=== PATIENT | female | born 1975 | race Caucasian/White ===

== ENCOUNTER 2024-10-23 13:04 | Outpatient (AMB) | payer OTHER, SELFPAY ==
--- NOTE | 2024-10-23 13:11 | A.OFFVIS_ITS ---
Vital Signs 10/23/24 13:13 Height 5 ft 9 in Weight 242 lb 8.136 oz BMI 35.8 BP 116/80 Blood Pressure Location Lt brachial Position Sitting Pulse 75 Intake Visit Reasons: follow up Intake Note: José Miguel presents in the office as a follow up. CC: States that he is here as a follow up for a pain in the stomach. No irregular bowel movements. He states that the pains are all over the umbilical and epigastric region. Product Technology Scientist Required: No Allergies No Known Allergies Allergy (Verified 10/23/24 13:13) HPI HPI follow up: Details: HPI 49 yr old m here for f/u He has noted weight going up he has pain, upper abdomen, like a knife going on for 5-8 mins then goes not related to food he has variable heart burn he denies costipation or diarrhea no rectla bleeding he used omeprazole 40 mg and it helps ROS: Constitutional : No Weight loss, No Fever, No Chills ENT/Mouth : No sore throat, No Rhinorrhea Eyes: No Swelling, No Redness Cardiovascular : No Chest Pain, No SOB, No Edema Respiratory : No Cough, No Sputum, No Wheezing Gastrointestinal : see HPI Genitourinary : occ Dysuria, No Urinary Frequency, No Hematuria, No Urgency Musculoskeletal : - joint pain, No Myalgias, No Joint Swelling Skin : No Skin Lesions, No rash Neuro : No Weakness, No Numbness, No Dizziness, No Headache Psych : No Anxiety/Panic, No Depression Heme/Lymph: No Bruising, No Lymphadenopathy Endocrine : No Polyuria, No Polydipsia All other systems reviewed and are negative. Medical History none Surgical History endoscopies Family History depression in brother mother has stomach issues, Social History non smoker, no alcohol, no drugs EXAM: GENERAL: The patient is well developed and nontoxic. VITAL SIGNS:see workflow HEENT: Nonicteric sclerae, PERRLA, EOMI. Oropharynx clear. Moist mucous membranes. Conjunctivae appear well perfused. No thyroid mass. CHEST: Chest wall is nontender. HEART: Regular rate and rhythm without murmurs. LUNGS: Clear to auscultation bilaterally. ABDOMEN: Soft, positive bowel sounds, nontender, no organomegaly.no flank tenderness SKIN: No rash, no excessive bruising, petechiae, or purpura. NEUROLOGIC: Cranial nerves II-XII intact without motor/sensory deficit. Psych: normal affect A/P: 1/ Upper abdominal pain- ?dyspepsia, DDX: biliary PLAN: /1 labs, urine, US abdomen 2/ check h pylori [facility] Surgical History (Updated 10/23/24 @ 13:15 by RBAD Corona) History of esophagogastroduodenoscopy (EGD) Physical Exam Vital Signs: Last Vital Signs Pulse 75 10/23/24 13:13 BP 116/80 10/23/24 13:13 BMI result Body Mass Index 35.8 Assessment & Plan Assessment & Plan (1) Upper abdominal pain: Code(s): R10.10 - Upper abdominal pain, unspecified Category: Medical Plan: as above Coding Level of Care Code New Pt Level 4 (04135) Diagnoses Upper abdominal pain R10.10
[2024-10-23 13:13] VITALS: BP 116/80; PULSE 75; BMI 35.8
--- OUTSIDE RECORDS SUMMARY | 2024-10-23 15:17 | XMS_ITS | Clinical Summary ---
Author Organization [employer] [facility] Address [address] [place] [address] Care Team Providers Care Director Of Physical Therapy Name Role Phone Unavailable Primary Care Provider Unavailabl e Encounters Date Type Department Care Team Description 09/05/2024 Population Health Risk Score [facility] Care [facility] (C3) Department [address] [facility] [address] [place] [id number] Provider, Population Health Generic from Last 3 Months Social History Tobacco Use Types Packs/Day Years Used Date Smoking Tobacco: Never Assessed Sex and Gender Information Value Date Recorded Sex Assigned at Not on file Legal Sex Male 9:17 PM EDT Gender Identity Not on file Sexual Orientation Not on file Plan of Treatment Health Maintenance Due Date Last Done Comments CT Colonography 1977 Colonoscopy 1977 Depression Screening 1977 FIT DNA/Cologuard 1977 FOBT 1977 Lipid Panel 1977 SDOH Screening 1977 Sigmoidoscopy 1977 Disability Screening 1977 Alcohol/Substance Use Screening 1989 Tobacco Screening 1989 Family Planning (PISQ) 1992 Hepatitis C Screening 10/12/1995 Hepatitis A Vaccines (1 of 2 - Risk 2-dose series) 1996 DTaP/Tdap/Td Vaccines (3 - T d or Tdap) 06/03/2023 06/02/2013, 05/01/2013 COVID-19 Vaccine (3 - 2024-2 6 season) 2024 05/18/2020, 04/20/2020 Influenza Vaccine (#1) 2024 , 12/13/2014, 12/28/2013 Colorectal Cancer Screening 08/06/2025 FIT 08/06/2025 08/06/2024 Zoster Vaccines (1 of 2) 10/12/2027 RSV Patients and Patients Aged 60 years or older (1 - 1-dose 75+ series) 2052 Hepatitis B Vaccines Completed 12/28/2013, 08/17/2013, 06/02/2013 HIV Screening Completed 10/28/2020, 10/28/2020 HIB Vaccines Aged Out No longer eligi ble based on patient's age to complete this topic HPV Vaccines Aged Out No longer eligi ble based on patient's age to complete this topic IPV Vaccines Aged Out No longer eligi ble based on patient's age to complete this topic Meningococcal B Vaccine Aged Out No l onger eligible based on patient's age to complete this topic Meningococcal Vaccine Aged Out No matilde silas eligible based on patient's age to complete this topic Pneumococcal Vaccine: Pediatrics (0 to 5 Years) and At-Risk Patients (6 to 49) Years Aged Out No longer eligible b ased on patient's age to complete this topic RSV under 20 months Aged Out No longe r eligible based on patient's age to complete this topic Rotavirus Vaccines Aged Out No longer eligible based on patient's age to complete this topic
== END 2024-10-23 14:20 | disposition home or self-care (01) ==
PROVIDERS: PCP Nurse Practitioner Family; Visit Provider Internal Medicine Gastroenterology
DX: R10.10 Upper abdominal pain, unspecified (principal)
CPT/HCPCS: 99204

== ENCOUNTER 2024-10-23 13:04 | Outpatient (REF) | payer MEDICAID, SELFPAY ==
[2024-10-23 14:32] LABS: MANUAL DIFF FLAG NO
[2024-10-23 15:28] LABS: Hematocrit 45.2 % (37.0-47.0); Hemoglobin 14.7 g/dl (12.0-16.0); Imm Gran Abs Auto 0.01 X10*3/uL (0.00-0.03); Imm Gran Pct Auto 0.2 % (0.0-0.4); Lymphocytes Absolute Auto 1.7 X10*3/uL (1.2-4.9); Mean Corpuscular HGB Conc 32.5 g/dl (31.0-35.0); Mean Corpuscular Hemoglobin 26.7 pg (27.0-33.0); Mean Corpuscular Volume 82.0 fL (80.0-98.0); NRBC Abs Auto 0.000 X10*3/uL (0.0-0.012); NRBC Pct Auto 0.0 /100WBC (0.0-0.2); Platelet Count 213 X10*3/uL (160-400); Red Blood Count 5.51 X10*6/uL (4.20-5.50); White Blood Count 6.2 X10*3/uL (4.8-10.8)
[2024-10-23 15:54] LABS: Appearance Urine Clear; Glucose Urine UA Negative (Negative); PH 5.0 (5.0-9.0); Specific Gravity - Urine 1.025 (1.005-1.025); UMIC TRIGGER UACC YES
[2024-10-23 16:10] LABS: Alanine Aminotransferase 31 U/L (0-31); Albumin Level 5.0 g/dL (3.5-5.0); Alkaline Phosphatase 74 U/L (39-117); Anion Gap 12 (12-20); Aspartate Amino Transferase 27 U/L (5-31); Blood Urea Nitrogen 14 mg/dL (9-16); Calcium 9.3 mg/dL (8.4-10.2); Carbon Dioxide 24 mmol/L (22-29); Chloride 109 mmol/L (96-108); Estimated Glomerular Filt Rate > 60; Potassium 4.0 mmol/L (3.3-5.1); Sodium 141 mmol/L (135-145); Total Protein 7.9 g/dL (6.5-8.0)
--- OUTSIDE RECORDS SUMMARY | 2024-10-23 16:47 | XMS_ITS | Clinical Summary ---
Author Organization [facility] Address [address] [place] [address] Care Team Providers Care Printed Circuit Boards Stripper Etcher Name Role Phone Jordi Parrish MD Primary Care Provider [phone] Source Comments PLEASE NOTE, if this patient is a minor, it may be UNLAWFUL to discuss sensitive information that is contained in these records (such as FAMILY PLANNING, MENTAL HEALTH or SUBSTANCE ABUSE) with the minor patient's parent or other person without the patient's specific authorization.[facility] Allergies No known active allergies Medications dicyclomine (BENTYL) 10 mg capsule Take 1 Capsule by mouth 2 (two) times daily as needed for other reason (abdominal pain/ cramping). 60 Capsule 1 07/26/2024 Active Active Problems Problem Noted Date Diagnosed Date Sciatica of right side 07/26/2024 Class 3 severe obesity due t o excess calories with serious comorbidity and body mass index (BMI) of 40.0 to 44.9 in adult ([facility]) 10/31/2014 Liver hemangioma 12/28/2013 Overview (03/12/2023): Seen on MRI 2013 NAFLD (nonalcoholic fatty liver disease) Overview (03/12/2023): Seen on MRI 2013 Resolved Problems Problem Noted Date Diagnosed Date Resolved Date Overweight 10/25/2020 03/12/2023 Right nephrolithiasis 04/16/20142020 Overview (11/12/2016): - US at [facility] in 2016 negative - CT scan 2 mm right ureter stone 04/14/14 at [facility]. Encounters Date Type Department Care Team Description 08/06/2024 Results Follow-Up [address] [id number] Jordi Parrish MD 07/26/2024 3:00 PM EDT Office Visit [address] [phone] Jordi Parrish MD from Last 3 Months Immunizations Immunization Administration Dates Next Due Flu, Preservative Free 11/29/2019 Hep B, Adult/Adol (DRAYVHI-Y-ORRVK/RECOMBIVAX-ADULT) 12/28/2013,08/17/2013,06/02/2013 INFLUENZA, SEASONAL, INJECTABLE 12/13/2014,12/28 MMR (MMR II/Priorix) 06/02/2013,05/01/2013 Moderna COVID-19 Vaccine, re d cap blue label, 12+ Primary Series 05/18/2020,04/20/2020 PPD 08/22/2013 TDAP 06/02/2013,05/01/2013 Social History Tobacco Use Types Packs/Day Years Used Date Smoking Tobacco: Never Smokeless Tobacco: Never Tobacco Cessation:Counseling Given: Not Answered Alcohol Use Standard Drinks/Week Comments No 0 (1 standard drink = 0.6 oz pur e alcohol) Social Connections Answer Date Recorded Connectedness 0 11/03/2023 Financial Resource Strain Answer Date R ecorded Financial Resource Strain 0 2018 Stress Answer Date Recorded Stress 0 10/05/2018 Physical Activity Answer Date Recorded Physical Activity 0 10/05/2018 Food Insecurity Answer Date Recorded Food 0 11/11/2023 Transportation Needs Answer Date Record ed Transportation 0 10/05/2018 Housing Stability Answer Date Recorded Housing 0 10/05/2018 Safety and Environment Answer Date Christiano rded Safety 0 10/05/2018 Utilities Answer Date Recorded Utilities 0 10/05/2018 Employment Answer Date Recorded Stress 0 11/03/2023 Sex and Gender Information Value Date Recorded Sex Assigned at Male 04/16/2017 1:00 PM PST Legal Sex Male 7:14 AM PST Gender Identity Male 04/16/2017 1:00 PM PST Sexual Orientation Straight 04/16/2017 1: 00 PM PST Last Filed Vital Signs Vital Sign Reading Time Taken Comments Blood Pressure 112/78 07/26/2024 2:53 PM EDT Pulse 77 07/26/2024 2:53 PM EDT Temperature 36.6 C (97.8 F) 07/26/2024 2:53 PM EDT Respiratory Rate 16 07/26/2024 2:53 PM EDT Oxygen Saturation 96% 07/26/2024 2:53 PM EDT Inhaled Oxygen Concentration - - Weight 109.8 kg (242 lb) 07/26/2024 2:53 PM EDT Height 159 cm (5' 2.6 ) 07/26/2024 2:53 PM EDT Body Mass Index 43.42 07/26/2024 2:53 PM EDT Plan of Treatment Health Maintenance Due Date Last Done Comments CT Colonography 2022 Colonoscopy 2022 Fecal DNA 2022 Flexible Sigmoidoscopy 2022 Imm-DTaP/Tdap/Td (3 - Td or Tdap) 06/03/2023 014, 05/01/2013 [id number] ( season) 2024 12/26/2020, 05/18/2020, 04/20/2020 Annual Wellness (Adult): Indicated (All Coverage) 07/26/2025 07/26/2024, 03/12/2023, 10/25/2020, Additional history exists Anxiety Screening 07/26/2025 07/26/2024 Hypertension Screening (#1) 07/26/2025 Tobacco Screening 07/26/2025 07/26/2024 Colorectal Cancer Screening 08/06/2025 FIT/gFOBT 08/06/2025 08/06/2024, 03/14/2023 Diabetes Screening 08/03/2027 08/02/2024, 0 08/02/2024, 03/12/2023, Additional history exists Lipid Screening 08/03/2027 08/02/2024, 02/16, 10/28/2020, Additional history exists Imm-Hepatitis B Completed 12/28/2013, 07/0 04/2013, 06/02/2013 Imm-Influenza Discontinued 11/29/2019, 11/16, 12/13/2014, Additional history exists HIV Screening Completed 10/28/2020, 05/01/2013 Hepatitis C Screening Completed 10/30/2020, 021 Alcohol and Drug Screen Completed 07/27/19 25, 03/12/2023, 10/25/2020, Additional history exists Depression Annual Screen Completed 025, 06/18/2017, 12/13/2014 Procedures Procedure Name Priority Date/Time Associated Diagnosis Comments FECAL GLOBIN BY IMMUNOCHEMISTRY (FIT) Routine 08/06/2024 8:00 PM EDT Colon cancer screening COMPREHENSIVE METABOLIC PANEL Routine 08/02/2024 1:23 PM EDT Routine general medical examination at a health care facility LIPIDS W RFLX TO DIRECT LDL Routine 08/02/2024 1:23 PM EDT Routine general medical examination at a health care facility HGA1C W/EAG Routine 08/02/2024 1:23 PM EDT Routine general medical examination at a health care facility ACUTE HEPATITIS PANEL W/RFLX Routine 10/30/2020 11:31 AM EDT Hyperbilirubinemia HIV 1/2 AG & AB W/RFLX (4TH GEN) Routine 10/28/2020 12:49 PM EDT Routine general medical examination at a health care facility from Last 3 Months or Most Recently Relevant to Health Maintenance Results * FECAL GLOBIN BY IMMUNOCHEMISTRY (FIT) Stool Stool Routine (08/06/2024 8:00 PM EDT) FECAL GLOBIN BY IMMUNOCHEMISTRY See Note [facility] Comment: FECAL GLOBIN BY IMMUNOCHEMISTRY Micro Number: [id number] Test Status: Final Specimen Source: Insure () fobt test card Specimen Quality: Adequate Fecal Globin: Not Detected Reference Range: Not Detected NOTE: Approved collection includes sample of toilet water adjacent to stool. Other methods of collection such as stool transferred from diaper, bedpan, or commode to toilet water may lead to inaccurate results. Stool Stool specimen / Unknown 08/06/2024 8:00 PM EDT 08/08/2024 10:51 PM EDT Narrative [facility] - 08/09/2024 8:39 AM EDT SPLIT 08/02/2024 FROM [id number] us Jordi Parrish MD LAB BODY FLUIDS AND STOOLS A MBULATORY Final Result Performing Organization Address [facility] de Phone Number [facility] [address] [place] [address], [facility] [address] [phone] * HGA1C W/EAG Routine (08/02/2024 1:23 PM EDT) HEMOGLOBIN A1C 5.1 <5.7 % [facility] [facility] Comment: For the purpose of screening for the presence of diabetes: <5.7% Consistent with the absence of diabetes 5.7-6.4% Consistent with increased risk for diabetes (prediabetes) > or =6.5% Consistent with diabetes This assay result is consistent with a decreased risk of diabetes. Currently, no consensus exists regarding use of hemoglobin A1c for diagnosis of diabetes in children. According to [place] Diabetes Association (ADA) guidelines, hemoglobin A1c <7.0% represents optimal control in non- diabetic patients. Different metrics may apply to specific patient populations. Standards of Medical Care in Diabetes(ADA). EAG (MG/DL) 100 mg/dL [facility] EAG (MMOL/L) 5.5 mmol/L [facility] Blood Blood / Unknown 08/02/2024 1 :23 PM EDT 08/02/2024 1:28 PM EDT Narrative [facility] - 08/03/2024 9:06 AM EDT COLLECTION KIT GIVEN TO PATIENT. PATIENT ADVISED TO RETURN. us Jordi Parrish MD LAB - BLOOD DRAW Edited Resu lt - Final Performing Organization Address [facility]/ZIP Co de Phone Number [facility] [address] [address], [facility] [address] [address] * LIPIDS W RFLX TO DIRECT LDL Routine (08/02/2024 1:23 PM EDT) CHOLESTEROL, TOTAL 143 <200 mg/dL [facility] HDL CHOLESTEROL 46 > OR = 40 mg/dL [facility] TRIGLYCERIDES 69 <150 mg/dL [facility] LDL-CHOLESTEROL 82 99 mg/dL (calc) [facility] Comment: Reference range: <100 Desirable range <100 mg/dL for primary prevention; <70 mg/dL for patients with CHD or diabetic patients with > or = 2 CHD risk factors. LDL-C is now calculated using the Salazar calculation, which is a validated novel method providing better accuracy than the Friedewald equation in the estimation of LDL-C. Jose Carlos SS et al. SANGEETHA. 2013;310(19): 9251-1034 (http://education.Pop.it/faq/RJA435) CHOL/HDLC RATIO 3.1 <5.0 (calc) [facility] NON-HDL CHOLESTEROL 97 <130 mg/dL (calc) [facility] Comment: For patients with diabetes plus 1 major ASCVD risk factor, treating to a non-HDL-C goal of <100 mg/dL (LDL-C of <70 mg/dL) is considered a therapeutic option. Blood Blood / Unknown 08/02/2024 1 :23 PM EDT 08/02/2024 1:28 PM EDT Narrative [facility] - 08/03/2024 9:06 AM EDT COLLECTION KIT GIVEN TO PATIENT. PATIENT ADVISED TO RETURN. Jordi Parrish MD LAB - BLOOD DRAW Final Resul t [facility] [address] [place] [address], [facility] [address] [place] [phone] * (ABNORMAL) COMPREHENSIVE METABOLIC PANEL Routine (08/02/2024 1:23 PM EDT) Pathologist [facility] GLUCOSE 101(H) 65 - 99 mg/dL [facility] Comment: Fasting reference interval For someone without known diabetes, a glucose value between 100 and 125 mg/dL is consistent with prediabetes and should be confirmed with a follow-up test. UREA NITROGEN (BUN) 22 7 - 25 mg/dL [facility] CREATININE (blood) 0.78 0.60 - 1.29 mg/dL [employer] EGFR 111 > OR = 60 mL/min/1. 73m2 [facility] [facility] BUN/CREATININE RATIO SEE NOTE: - [facility] [facility] Comment: Not Reported: BUN and Creatinine are within reference range. SODIUM 139 135 - 146 mmol/L [employer] [facility] POTASSIUM 4.6 3.5 - 5.3 mmol/L [employer] [facility] CHLORIDE 104 98 - 110 mmol/L [employer] [facility] CARBON DIOXIDE 26 20 - 32 mmol/L [facility] [facility] CALCIUM 9.5 8.6 - 10.3 mg/dL [employer] [facility] PROTEIN, TOTAL 7.4 6.1 - 8.1 g/dL [facility] ALBUMIN 4.8 3.6 - 5.1 g/dL [facility] GLOBULIN 2.6 1.9 - 3.7 g/dL (calc) [facility] [facility] ALBUMIN/GLOBULI N RATIO 1.8 1.0 - 2.5 (calc) [facility] BILIRUBIN, TOTAL 0.8 0.2 - 1.2 mg/dL [employer] [facility] ALKALINE PHOSPHATASE 64 36 - 130 U/L [employer] [facility] AST 19 10 - 40 U/L [employer] [facility] ALT 29 9 - 46 U/L [facility] Blood Blood / Unknown 08/02/2024 1 :23 PM EDT 08/02/2024 1:28 PM EDT Narrative [employer] [facility] - 08/03/2024 9:06 AM EDT COLLECTION KIT GIVEN TO PATIENT. PATIENT ADVISED TO RETURN. us Jordi Parrish MD LAB - BLOOD DRAW Final Resul t [employer] [address] [address], [employer] [address] [address] * Acute Hepatitis Panel with Reflex to Confirmation (10/30/2020 11:31 AM EDT) HEPATITIS A IGM ANTIBODY NON-REACT COOKIE NON-REACT COOKIE [employer] [facility] COMMENT [employer] [facility] HEPATITIS B SURFACE ANTIGEN NON-REACT COOKIE NON-REACT COOKIE [employer] [facility] HEPATITIS B CORE IGM ANTIBODY NON-REACT COOKIE NON-REACT COOKIE [employer] [facility] HEPATITIS C ANTIBODY NON-REACT COOKIE NON-REACT COOKIE [facility] SIGNAL TO CUT-OFF 0.01 <1.00 [facility] Comment: HCV antibody was non-reactive. There is no laboratory evidence of HCV infection. In most cases, no further action is required. However, if recent HCV exposure is suspected, a test for HCV RNA (test code 04316) is suggested. For additional information please refer to http://[facility].fflap/faq/VCV62e0 (This link is being provided for informational/ educational purposes only.) Blood Blood / Unknown 10/30/2020 1 1:31 AM EDT 10/30/2020 11:31 AM EDT Narrative [facility] - 11/01/2020 4:02 PM EDT For additional information, please refer to http://[facility].fflap/faq/JXJ704 (This link is being provided for informational/ educational purposes only.) Jordi Parrish MD LAB - BLOOD DRAW Final Resul t [facility] [address] [address], [facility] [address] [address] * HIV Ag & Ab with Reflex Western Blot (10/28/2020 12:49 PM EDT) HIV AG/AB, 4TH GEN NON-REAC TIVE NON-REAC TIVE [facility] Comment: HIV-1 antigen and HIV-1/HIV-2 antibodies were not detected. There is no laboratory evidence of HIV infection. PLEASE NOTE: This information has been disclosed to you from records whose confidentiality may be protected by state law. If your state requires such protection, then the state law prohibits you from making any further disclosure of the information without the specific written consent of the person to whom it pertains, or as otherwise permitted by law. A general authorization for the release of medical or other information is NOT sufficient for this purpose. For additional information please refer to http://education.[employer].marshallindex/faq/SHM170 (This link is being provided for informational/ educational purposes only.) The performance of this assay has not been clinically validated in patients less than 2 years old. Blood Blood / Unknown 10/28/2020 1 2:49 PM EDT 10/28/2020 12:50 PM EDT Narrative [facility] [employer] - 10/29/2020 7:03 PM EDT FASTING:YES us Jordi Parrish MD LAB - BLOOD DRAW Final Resul t [facility] [address] [address], [facility] [address] [address] from Last 3 Months or Most Recently Relevant to Health Maintenance Insurance [employer] [address] [employer] Care Teams Printed Circuit Boards Stripper Etcher Relationship Specialty Start Date End Date Jordi Parrish MD [address] [place] [address] PCP - General Internal Medicine 10/25/20
== END 2024-10-23 13:05 | disposition home or self-care (01) ==
LOC: HO.LAB 13:04
PROVIDERS: PCP Nurse Practitioner Family; Visit Provider Internal Medicine Gastroenterology
DX: K75.81 Nonalcoholic steatohepatitis (NASH) (principal); R10.10 Upper abdominal pain, unspecified; R30.0 Dysuria
CPT/HCPCS: 36415; 80053; 81001; 85025; 86140; 99202

== ENCOUNTER 2024-10-26 08:42 | Outpatient (AMB) | payer MEDICAID, SELFPAY ==
--- NOTE | 2024-10-26 09:00 | AM.OFFVISNUR ---
Intake Visit Reasons: h pylori Intake Note: Patient presents for collection of?H Pylori?breath test. Patient has been fasting for 1 hour (nothing to eat, drink, no chewing gum or smoking) has not taken any antacid medication for at least 2 weeks and has no allergies to artificial sweeteners.?? Allergies No Known Allergies Allergy (Verified 10/23/24 13:13) Assessment & Plan Assessment & Plan (1) Upper abdominal pain: Code(s): R10.10 - Upper abdominal pain, unspecified Category: Medical Plan Patient presents for collection of?H Pylori?breath test. Patient has been fasting for 1 hour (nothing to eat, drink, no chewing gum or smoking) has not taken any antacid medication for at least 2 weeks and has no allergies to artificial sweeteners.???This test checks for an overgrowth of bacteria in your stomach. We all have bacteria but some may have more than others. It is treatable. if the test comes back negative there is nothing else to do. If the test result is positive we will treat you with 2 antibiotics and a medication to decrease the acid in your stomach (PPI) for 2 weeks. Two weeks after you have completed the treatment we will retest you to make sure the overgrowth has resolved. Patient Instructions: Process for specimen collection and reason for testing was explained to the patient. Specimen collection. Patient instructed to take a deep breath and then exhale into the blue bag, filling it up as much as possible. Patient instructed to drink a mixture of water and the artificial sweetener with a straw. A 15 minute wait period was observed. Patient instructed to take a deep breath and then exhale into the pink bag, filling it up as much as possible.?? Coding Level of Care Code Est Pt Level 1 (40731) Diagnoses Upper abdominal pain R10.10
== END 2024-10-26 09:01 | disposition home or self-care (01) ==
PROVIDERS: PCP Nurse Practitioner Family; Visit Provider Internal Medicine Gastroenterology
DX: R10.10 Upper abdominal pain, unspecified (principal)

== ENCOUNTER 2024-10-26 08:42 | Outpatient (REF) | payer MEDICAID, SELFPAY ==
--- OUTSIDE RECORDS SUMMARY | 2024-10-26 09:50 | XMS_ITS | Clinical Summary ---
Author Organization [facility] Address PO [facility] [address] [place] [address] Care Team Providers Care Artist Representative Name Role Phone Jordi Parrish MD Primary Care Provider [phone] Source Comments PLEASE NOTE, if this patient [...] (BMI) of 40.0 to 44.9 in adult ([facility]) 10/31/2014 Liver hemangioma 12/28/2013 Overview (03/12/2023): Seen on MRI 2013 NAFLD (nonalcoholic fatty liver disease) Overview (03/12/2023): Seen on MRI 2013 Resolved Problems Problem Noted Date Diagnosed Date Resolved Date Overweight 10/25/2020 03/12/2023 Right nephrolithiasis 04/16/20142020 Overview (11/12/2016): - US at [facility] in 2016 negative - CT scan 2 mm right ureter stone 04/14/14 [facility]. Encounters Date Type Department Care Team Description 08/06/2024 Results Follow-Up [address] [phone] Jordi Parrish MD 07/26/2024 3:00 PM EDT Office Visit [address] [phone] Jordi Parrish MD from Last 3 Months Immunizations Immunization Administration Dates Next Due Flu, Preservative Free 11/29/2019 Hep B, Adult/Adol ([id number]/RECOMBIVAX-ADULT) 12/28/2013,08/17/2013,06/02/2013 INFLUENZA, SEASONAL, INJECTABLE 12/13/2014,12/28 MMR (MMR [...] - Td or Tdap) 06/03/2023 014, 05/01/2013 [id number] ( season) 2024 12/26/2020, 05/18/2020, 04/20/2020 Annual [...] Procedure Name Priority Date/Time Associated Diagnosis Comments REFERRAL SCANNED DOCUMENT 10/23/2024 3:00 AM EDT LAB SCANNED DOCUMENT 10/23/2024 3:00 AM EDT FECAL GLOBIN BY IMMUNOCHEMISTRY (FIT) Routine 08/06/2024 [...] Recently Relevant to Health Maintenance Results * REFERRAL SCANNED DOCUMENT (10/23/2024 3:00 AM EDT) 10/23/2024 3:00 AM EDT Cindy DAVISP SCAN REFERRAL Final Result * LAB SCANNED DOCUMENT (10/23/2024 3:00 AM EDT) 10/23/2024 3:00 AM EDT Cindy Africa MATERIALS SCIENTIST SCAN LAB Final Result * FECAL GLOBIN BY IMMUNOCHEMISTRY (FIT) Stool Stool Routine (08/06/2024 8:00 PM EDT) FECAL GLOBIN BY IMMUNOCHEMISTRY See Note [employer] Comment: FECAL GLOBIN BY IMMUNOCHEMISTRY Micro Number: [id number] Test Status: Final Specimen Source: Insure (tm) fobt test card Specimen Quality: Adequate Fecal Globin: Not Detected Reference Range: Not Detected NOTE: Approved collection includes sample of toilet water adjacent to stool. Other methods of collection such as stool transferred from diaper, bedpan, or commode to toilet water may lead to inaccurate results. Stool Stool specimen / Unknown 08/06/2024 8:00 PM EDT 08/08/2024 10:51 PM EDT Narrative [employer] - 08/09/2024 8:39 AM EDT SPLIT 08/02/2024 FROM [id number] Jordi Parrish MD LAB BODY FLUIDS AND STOOLS A MBULATORY Final Result [employer] [address] [place] [address], [employer] [address] [place] [phone] * HGA1C W/EAG Routine (08/02/2024 1:23 PM EDT) HEMOGLOBIN A1C 5.1 <5.7 % [employer] Comment: For the purpose of screening for the presence of diabetes: <5.7% Consistent with the absence of diabetes 5.7-6.4% Consistent with increased risk for diabetes (prediabetes) > or =6.5% Consistent with diabetes This assay result is consistent with a decreased risk of diabetes. Currently, no consensus exists regarding use of hemoglobin A1c for diagnosis of diabetes in children. According to [place] Diabetes Association (ADA) guidelines, hemoglobin A1c <7.0% represents optimal control in non- diabetic patients. Different metrics may apply to specific patient populations. Standards of Medical Care in Diabetes(ADA). EAG (MG/DL) 100 mg/dL [employer] EAG (MMOL/L) 5.5 mmol/L [facility] Blood Blood / Unknown 08/02/2024 1 :23 PM EDT 08/02/2024 1:28 PM EDT Narrative [employer] - 08/03/2024 9:06 AM EDT COLLECTION KIT GIVEN TO PATIENT. PATIENT ADVISED TO RETURN. Jordi Parrish MD LAB - BLOOD DRAW Edited Resu lt - Final [employer] [address] [place] [address], [employer] [address] [address] * LIPIDS W RFLX TO DIRECT LDL Routine (08/02/2024 1:23 PM EDT) CHOLESTEROL, TOTAL 143 <200 mg/dL [facility] HDL CHOLESTEROL 46 > OR = 40 mg/dL [facility] TRIGLYCERIDES 69 <150 mg/dL [employer] [facility] LDL-CHOLESTEROL 82 99 mg/dL (calc) [facility] Comment: Reference range: <100 Desirable range <100 mg/dL for primary prevention; <70 mg/dL for patients with CHD or diabetic patients with > or = 2 CHD risk factors. LDL-C is now calculated using the Jose Carlos-Napoles calculation, which is a validated novel method providing better accuracy than the Friedewald equation in the estimation of LDL-C. Jose Carlos FOUNTAIN et al. SANGEETHA. 2013;310(19): 3693-9436 (http://education.Podclass.WinView/faq/QDK662) CHOL/HDLC RATIO 3.1 <5.0 (calc) [facility] NON-HDL CHOLESTEROL 97 <130 mg/dL (calc) [employer] Comment: For patients with diabetes plus 1 major ASCVD risk factor, treating to a non-HDL-C goal of <100 mg/dL (LDL-C of <70 mg/dL) is considered a therapeutic option. Blood Blood / Unknown 08/02/2024 1 :23 PM EDT 08/02/2024 1:28 PM EDT Narrative [employer] - 08/03/2024 9:06 AM EDT COLLECTION KIT GIVEN TO PATIENT. PATIENT ADVISED TO RETURN. us Jordi Parrish MD LAB - BLOOD DRAW Final Resul t [employer] [facility] [address] [address], [employer] [facility] [address] [place] [address] * (ABNORMAL) COMPREHENSIVE METABOLIC PANEL Routine (08/02/2024 1:23 PM EDT) GLUCOSE 101(H) 65 - 99 mg/dL [facility] Comment: Fasting reference interval For someone without known diabetes, a glucose value between 100 and 125 mg/dL is consistent with prediabetes and should be confirmed with a follow-up test. UREA NITROGEN (BUN) 22 7 - 25 mg/dL [facility] CREATININE (blood) 0.78 0.60 - 1.29 mg/dL [facility] EGFR 111 > OR = 60 mL/min/1. 73m2 [facility] BUN/CREATININE RATIO SEE NOTE: [facility] Comment: Not Reported: BUN and Creatinine are within reference range. SODIUM 139 135 - 146 mmol/L [facility] POTASSIUM 4.6 3.5 - 5.3 mmol/L [employer] CHLORIDE 104 98 - 110 mmol/L [facility] CARBON DIOXIDE 26 20 - 32 mmol/L [employer] CALCIUM 9.5 8.6 - 10.3 mg/dL [employer] PROTEIN, TOTAL 7.4 6.1 - 8.1 g/dL [facility] ALBUMIN 4.8 3.6 - 5.1 g/dL [facility] GLOBULIN 2.6 1.9 - 3.7 g/dL (calc) [employer] [facility] ALBUMIN/GLOBULI N RATIO 1.8 1.0 - 2.5 (calc) [facility] BILIRUBIN, TOTAL 0.8 0.2 - 1.2 mg/dL [facility] ALKALINE PHOSPHATASE 64 36 - 130 U/L [facility] AST 19 10 - 40 U/L [employer] ALT 29 9 - 46 U/L [facility] Blood Blood / Unknown 08/02/2024 1 :23 PM EDT 08/02/2024 1:28 PM EDT Narrative [employer] - 08/03/2024 9:06 AM EDT COLLECTION KIT GIVEN TO PATIENT. PATIENT ADVISED TO RETURN. us Jordi Parrish MD LAB - BLOOD DRAW Final Resul t Performing Organization Address [facility] Co de Phone Number [employer] [address] [place] [address], [employer] [address] [address] * Acute Hepatitis Panel with Reflex to Confirmation (10/30/2020 11:31 AM EDT) HEPATITIS A IGM ANTIBODY NON-REACT COOKIE NON-REACT COOKIE [employer] [facility] COMMENT [employer] [facility] HEPATITIS B SURFACE ANTIGEN NON-REACT COOKIE NON-REACT COOKIE [employer] [facility] HEPATITIS B CORE IGM ANTIBODY NON-REACT COOKIE NON-REACT COOKIE [employer] [facility] HEPATITIS C ANTIBODY NON-REACT COOKIE NON-REACT COOKIE [employer] [facility] SIGNAL TO CUT-OFF 0.01 <1.00 [employer] Comment: HCV antibody was non-reactive. There is no laboratory evidence of HCV infection. In most cases, no further action is required. However, if recent HCV exposure is suspected, a test for HCV RNA (test code 42375) is suggested. For additional information please refer to http://itzbig.Fate Therapeutics/faq/CRW80q4 (This link is being provided for informational/ educational purposes only.) Blood Blood / Unknown 10/30/2020 1 1:31 AM EDT 10/30/2020 11:31 AM EDT Narrative [employer] - 11/01/2020 4:02 PM EDT For additional information, please refer to http://itzbig.Fate Therapeutics/faq/TAG157 (This link is being provided for informational/ educational purposes only.) us Jordi Parrish MD LAB - BLOOD DRAW Final Resul t Performing Organization Address [facility] de Phone Number [employer] [address] [address], [place] [facility] [address] [place] [address] * HIV Ag & Ab with Reflex Western Blot (10/28/2020 12:49 PM EDT) HIV AG/AB, 4TH GEN NON-REAC TIVE NON-REAC TIVE [employer] Comment: HIV-1 antigen and HIV-1/HIV-2 antibodies were [...] purpose. For additional information please refer to http://education.Fate Therapeutics/faq/MRW025 (This link is being provided for informational/ educational purposes only.) The performance of this assay has not been clinically validated in patients less than 2 years old. Blood Blood / Unknown 10/28/2020 1 2:49 PM EDT 10/28/2020 12:50 PM EDT Narrative [employer] - 10/29/2020 7:03 PM EDT FASTING:YES us Jordi Parrish MD LAB - BLOOD DRAW Final Resul t [employer] [address] [address], [employer] [facility] [address] [address] [address] from Last 3 Months or Most Recently Relevant to Health Maintenance Insurance HEALTH SAF[employer] [address] [employer] Care Teams Artist Representative Relationship Specialty Start Date End Date Jordi Parrish MD [address] [place] [address] PCP - General Internal Medicine 10/25/20
--- OUTSIDE RECORDS SUMMARY | 2024-10-26 09:50 | XMS_ITS | Clinical Summary ---
Author Organization [facility] Address [address] [facility] 7t [place] [address] Care Team Providers Care Urology Physician Name Role Phone Unavailable Primary Care Provider Unavailabl e Encounters Date Type Department Care Team Description 09/05/2024 Population Health Risk Score [facility] (C3) Department [address] [facility] [address] [place] [phone] Provider, Population Health Generic from Last 3 [...]
== END 2024-10-26 08:43 | disposition home or self-care (01) ==
LOC: HO.LAB 08:42
PROVIDERS: PCP Nurse Practitioner Family; Visit Provider Internal Medicine Gastroenterology
DX: R10.10 Upper abdominal pain, unspecified (principal)
CPT/HCPCS: 83013; 99211

== ENCOUNTER 2024-12-12 07:46 | Outpatient (REF) | payer MEDICAID, SELFPAY ==
--- NOTE | ~2024-12-12 | US_ITS ---
CLINICAL HISTORY: R10.10 - Upper abdominal pain, unspecified US abdomen complete Comparison: None provided Findings: The liver is echogenic and slightly heterogeneous. However, no focal liver lesions are seen or intrahepatic biliary dilatation. Gallbladder nondistended. Gallbladder bladder wall not thickened at 2 mm. There are no gallstones. Sonographic Higgins's sign is negative. CBD nondilated at 5 mm. The right kidney measures 11 cm and the left kidney measures 12.5 cm. No focal cortical lesions or signs of obstructive uropathy. Spleen nonenlarged at 10 cm. No focal splenic lesions are seen. Pancreas not adequately visualized due to overlying bowel gas. Partially visualized aorta and IVC unremarkable. No evidence of free fluid IMPRESSION: Echogenic liver, either from fatty infiltration or early hepatocellular disease. The examination is otherwise unremarkable. No acute process identified. This document has been electronically signed by: Erwin Giles MD on 12/12/2024 10:04:34
--- OUTSIDE RECORDS SUMMARY | 2024-12-12 07:52 | XMS_ITS | Clinical Summary ---
Author Organization [facility] Address [address] [place] [address] [place] [address] Care Team Providers Care Shoe Stainer Name Role Phone Jordi Parrish MD Primary Care Provider [phone] Source Comments PLEASE NOTE, if this patient [...] (BMI) of 40.0 to 44.9 in adult 10/31/2014 Liver hemangioma 12/28/2013 Overview (03/12/2023): Seen on MRI 2013 NAFLD (nonalcoholic fatty liver disease) Overview (03/12/2023): Seen on MRI 2013 Resolved Problems Problem Noted Date Diagnosed Date Resolved Date Overweight 10/25/2020 03/12/2023 Right nephrolithiasis 04/16/20142020 Overview (11/12/2016): - US at [facility] in 2016 negative - CT scan 2 mm right ureter stone 04/14/14 at [facility]. Encounters Date Type Department Care Team Description 10/30/2024 Interim Notes [address] [phone] Surinder Hidalgo from Last 3 Months Immunizations Immunization Administration Dates Next Due Flu, Preservative Free 11/29/2019 Hep B, Adult/Adol ([id number]/RECOMBIVAX-ADULT) 12/28/2013,08/17/2013,06/02/2013 INFLUENZA, SEASONAL, INJECTABLE 12/13/2014,12/28 MMR (MMR [...] - Td or Tdap) 06/03/2023 014, 05/01/2013 [id number] ( season) 2024 12/26/2020, 05/18/2020, 04/20/2020 Annual [...] 10/30/2020, 021 Alcohol and Drug Screen Completed 07/27/19, 03/12/2023, 10/25/2020, Additional history exists Depression Annual Screen Completed 025, 06/18/2017, 12/13/2014 Procedures Procedure Name Priority Date/Time Associated Diagnosis Comments LAB SCANNED DOCUMENT 10/26/2024 3:00 AM EDT REFERRAL SCANNED DOCUMENT 10/23/2024 3:00 AM EDT LAB SCANNED DOCUMENT 10/23/2024 3:00 AM EDT FECAL GLOBIN BY IMMUNOCHEMISTRY (FIT) Routine 08/06/2024 8:00 PM EDT Colon cancer screening HGA1C W/EAG Routine 08/02/2024 1:23 PM EDT [...] Recently Relevant to Health Maintenance Results * LAB SCANNED DOCUMENT (10/26/2024 3:00 AM EDT) Only the most recent of2 resultswithin the time period is included. 10/26/2024 3:[address] [facility] CYLINDER MACHINE OPERATOR SCAN LAB Final Result * REFERRAL SCANNED DOCUMENT (10/23/2024 3:00 AM EDT) 10/23/2024 3:00 AM EDT [facility] [employer] CYLINDER MACHINE OPERATOR SCAN REFERRAL Final Result * FECAL GLOBIN BY IMMUNOCHEMISTRY (FIT) Stool Stool Routine (08/06/2024 8:00 PM EDT) FECAL GLOBIN BY IMMUNOCHEMISTRY See Note [facility] Comment: FECAL GLOBIN BY IMMUNOCHEMISTRY Micro Number: [id number] Test Status: Final Specimen Source: Insure (tm) [...] PM EDT 08/08/2024 10:51 PM EDT Narrative [employer] - 08/09/2024 8:39 AM EDT SPLIT 08/02/2024 FROM [id number] Jordi Parrish MD LAB BODY FLUIDS AND STOOLS A MBULATORY Final Result [employer] [address] [address], [facility] [address] [place] [phone] * HGA1C W/EAG Routine (08/02/2024 1:23 PM EDT) HEMOGLOBIN A1C 5.1 <5.7 % [facility] Comment: For the purpose of screening for the presence of diabetes: <5.7% Consistent with the absence of diabetes 5.7-6.4% Consistent with increased risk for diabetes (prediabetes) > or =6.5% Consistent with diabetes This assay result is consistent with a decreased risk of diabetes. Currently, no consensus exists regarding use of hemoglobin A1c for diagnosis of diabetes in children. According to [place] Diabetes Association (ADA) guidelines, hemoglobin A1c <7.0% represents optimal control in non- diabetic patients. Different metrics may apply to specific patient populations. Standards of Medical Care in Diabetes(ADA). EAG (MG/DL) 100 mg/dL [facility] EAG (MMOL/L) 5.5 mmol/L [employer] [facility] [employer] Blood Blood / Unknown 08/02/2024 1 :23 PM EDT 08/02/2024 1:28 PM EDT Narrative [employer] - 08/03/2024 9:06 AM EDT COLLECTION KIT GIVEN TO PATIENT. PATIENT ADVISED TO RETURN. us Jordi Parrish MD LAB - BLOOD DRAW Edited Resu lt - Final Performing Organization Address [facility] Co de Phone Number [employer] [address] [place] [address], [facility] [address] [place] [phone] * LIPIDS W RFLX TO DIRECT LDL Routine (08/02/2024 1:23 PM EDT) [facility] Signature CHOLESTEROL, TOTAL 143 <200 mg/dL [facility] HDL CHOLESTEROL 46 > OR = 40 mg/dL [facility] TRIGLYCERIDES 69 <150 mg/dL [facility] LDL-CHOLESTEROL 82 99 mg/dL (calc) [facility] Comment: Reference range: <100 Desirable range <100 mg/dL for primary prevention; <70 mg/dL for patients with CHD or diabetic patients with > or = 2 CHD risk factors. LDL-C is now calculated using the Jose Carlos-Yesika calculation, which is a validated novel method providing better accuracy than the Friedewald equation in the estimation of LDL-C. Jose Carlos SS et al. SANGEETHA. 2013;310(19): 0752-1024 (http://education.EasyPaint/faq/ZOA838) CHOL/HDLC RATIO 3.1 <5.0 (calc) [facility] NON-HDL CHOLESTEROL 97 <130 mg/dL (calc) [facility] Comment: For patients with diabetes plus 1 major ASCVD risk factor, treating to a non-HDL-C goal of <100 mg/dL (LDL-C of <70 mg/dL) is considered a therapeutic option. Blood Blood / Unknown 08/02/2024 1 :23 PM EDT 08/02/2024 1:28 PM EDT Narrative [employer] - 08/03/2024 9:06 AM EDT COLLECTION KIT GIVEN TO PATIENT. PATIENT ADVISED TO RETURN. us Jordi Parrish MD LAB - BLOOD DRAW Final Resul t Performing Organization Address [facility]/ZIP Co de Phone Number [employer] [address] [place] [address] [place] [address], [employer] [facility] [address] [place] [address] * Acute Hepatitis Panel with Reflex to Confirmation (10/30/2020 11:31 AM EDT) HEPATITIS A IGM ANTIBODY NON-REACT COOKIE NON-REACT COOKIE [employer] [facility] COMMENT [employer] [facility] HEPATITIS B SURFACE ANTIGEN NON-REACT COOKIE NON-REACT COOKIE [employer] [facility] HEPATITIS B CORE IGM ANTIBODY NON-REACT COOKIE NON-REACT COOKIE [employer] [facility] HEPATITIS C ANTIBODY NON-REACT COOKIE NON-REACT COOKIE [employer] [facility] SIGNAL TO CUT-OFF 0.01 <1.00 [facility] Comment: HCV antibody was non-reactive. There is no laboratory evidence of HCV infection. In most cases, no further action is required. However, if recent HCV exposure is suspected, a test for HCV RNA (test code 89638) is suggested. For additional information please refer to http://ClearPoint Learning Systems.[employer]faq/MEV23e7 (This link is being provided for informational/ educational purposes only.) Blood Blood / Unknown 10/30/2020 1 1:31 AM EDT 10/30/2020 11:31 AM EDT Narrative [employer] [facility] - 11/01/2020 4:02 PM EDT For additional information, please refer to http://[employer]faq/YGD140 (This link is being provided for informational/ educational purposes only.) Jordi Parrish MD LAB - BLOOD DRAW Final Resul t [employer] [facility] [address] [address], [employer] [facility] [address] [address] * HIV Ag & Ab with Reflex Western Blot (10/28/2020 12:49 PM EDT) Pathologist [facility] HIV AG/AB, 4TH GEN NON-REAC TIVE NON-REAC TIVE [employer] [facility] Comment: HIV-1 antigen and HIV-1/HIV-2 antibodies [...] purpose. For additional information please refer to http://education.[employer]./faq/CCA380 (This link is being provided for informational/ educational purposes only.) The performance of this assay has not been clinically validated in patients less than 2 years old. Blood Blood / Unknown 10/28/2020 1 2:49 PM EDT 10/28/2020 12:50 PM EDT Narrative [facility] [employer] - 10/29/2020 7:03 PM EDT FASTING:YES us Jordi Parrish MD LAB - BLOOD DRAW Final Resul t [employer] [address] [address], [employer] [place] [employer] [address] [address] from Last 3 Months or Most Recently Relevant to Health Maintenance Insurance [employer] NET DENT[employer] Care Teams Shoe Stainer Relationship Specialty Start Date End Date Jordi Parrish MD [address] [place] [address] PCP - General Internal Medicine 10/25/20
--- OUTSIDE RECORDS SUMMARY | 2024-12-12 07:52 | XMS_ITS | Clinical Summary ---
Author Organization [employer] Address [address] [facility] 7t [place] [address] Care Team Providers Care Sales Representative Electric Service Name Role Phone Unavailable Primary Care Provider Unavailabl e Social History Tobacco Use Types Packs/Day Years [...] Completed 12/28/2013, 08/17/2013, 06/02/2013 HIV Screening Completed 10/28/2020 HIB Vaccines Aged Out No longer [...]
== END 2024-12-12 07:47 | disposition home or self-care (01) ==
LOC: HO.US 07:46
PROVIDERS: PCP Nurse Practitioner Family; Visit Provider Internal Medicine Gastroenterology
DX: R10.10 Upper abdominal pain, unspecified (principal)
CPT/HCPCS: 76700

== ENCOUNTER → 2024-12-12 07:48 | Outpatient (BNV) | payer MEDICAID, SELFPAY | PROVIDERS: PCP Nurse Practitioner Family; Visit Provider Radiology Diagnostic Radiology | DX: R93.2 Abnormal findings on diagnostic imaging of liver and biliary tract (principal) | CPT/HCPCS: 76700 ==

== ENCOUNTER 2025-01-15 13:28 | Outpatient (AMB) | payer MEDICAID, SELFPAY ==
--- NOTE | 2025-01-15 13:31 | MHC.OFFVIS ---
Vital Signs 01/15/25 13:34 Height 5 ft 9 in Weight 244 lb 11.41 oz BMI 36.1 BP 119/80 Blood Pressure Location Lt brachial Position Sitting Pulse 66 Intake Visit Reasons: follow up Intake Note: José Miguel presents in the office as a follow up. Allergies No Known Allergies Allergy (Verified 01/15/25 13:34) HPI HPI follow up: Details: 49 yr old m here for f/u RECAP: He had noted weight going up he had noted pain, upper abdomen, like a knife going on for 5-8 mins then goes not related to food he has variable heart burn he denies costipation or diarrhea no rectal bleeding he used omeprazole 40 mg and it helps urine, small blood H pylori neg CBC nml CMP: mild bili elevation otherwise nml US: 12/09--fatty liver INTERIM: he feels much better the pain is much reduced he has some mild dysuria he has some GERD EXAM: GENERAL: The patient is well developed and nontoxic. VITAL SIGNS:see workflow HEENT: Nonicteric sclerae, PERRLA, EOMI. Oropharynx clear. Moist mucous membranes. Conjunctivae appear well perfused. No thyroid mass. CHEST: Chest wall is nontender. HEART: Regular rate and rhythm without murmurs. LUNGS: Clear to auscultation bilaterally. ABDOMEN: Soft, positive bowel sounds, nontender, no organomegaly.no flank tenderness SKIN: No rash, no excessive bruising, petechiae, or purpura. NEUROLOGIC: Cranial nerves II-XII intact without motor/sensory deficit. Psych: normal affect A/P: 1/ Upper abdominal pain- improved--has gerd 2/ small blood in urine -he does have dysuria PLAN: /1 recheck UA--if ongoing hematuria then refer urology 2/ refilled PPI--having some reflux PFSH Surgical History (Updated 10/23/24 @ 13:15 by BRAD Corona) History of esophagogastroduodenoscopy (EGD) Assessment & Plan Assessment & Plan (1) Upper abdominal pain: Code(s): R10.10 - Upper abdominal pain, unspecified Category: Medical Plan: as above Orders: Orders UA CC w/rflx Micro + Cult Today R30.0 - Dysuria Medications: New esomeprazole magnesium 40 mg PO DAILY 90 caps 1RF Patient Instructions: as above Coding Level of Care Code Est Pt Level 3 (67276) Diagnoses Upper abdominal pain R10.10
[2025-01-15 13:34] VITALS: BP 119/80; PULSE 66; BMI 36.1
--- OUTSIDE RECORDS SUMMARY | 2025-01-15 17:02 | XMS_ITS | Clinical Summary ---
Author Organization [employer] Address [address] [place] [address] 7t [place] [address] Care Team Providers Care Glost Tile Shader Name Role Phone Unavailable Primary Care Provider [...] 2024 , 12/13/2014, 12/28/2013 Colorectal Cancer Screening 08/07/2025 FIT 08/07/2025 08/07/2024, 08/06/2024, 03/15/2023 Zoster Vaccines (1 of 2) 10/12/2027 RSV [...]
== END 2025-01-15 13:54 | disposition home or self-care (01) ==
LOC: HO.HGI 13:29
PROVIDERS: PCP Nurse Practitioner Family; Visit Provider Internal Medicine Gastroenterology
DX: R10.10 Upper abdominal pain, unspecified (principal)
CPT/HCPCS: 99213

== ENCOUNTER → 2025-01-15 13:28 | Outpatient (BNVA) | payer MEDICAID, SELFPAY | PROVIDERS: PCP Nurse Practitioner Family; Visit Provider Internal Medicine Gastroenterology | DX: R10.10 Upper abdominal pain, unspecified (principal) | CPT/HCPCS: 99212 ==

== ENCOUNTER 2025-01-19 13:20 | Outpatient (REF) | payer MEDICAID, SELFPAY ==
[2025-01-19 14:20] LABS: Appearance Urine Clear; Glucose Urine UA Negative (Negative); PH 5.5 (5.0-9.0); Specific Gravity - Urine 1.025 (1.005-1.025); UMIC TRIGGER UACC YES
--- OUTSIDE RECORDS SUMMARY | 2025-01-19 17:27 | XMS_ITS | Clinical Summary ---
Author Organization [employer] Address [address] [place] [address] 7 [place] [address] Care Team Providers Care Supply Teacher Name Role Phone Unavailable Primary Care Provider [...]
== END 2025-01-19 13:21 | disposition home or self-care (01) ==
LOC: HO.LAB 13:20
PROVIDERS: PCP Dentist General Practice; Visit Provider Internal Medicine Gastroenterology
DX: R30.0 Dysuria (principal)
CPT/HCPCS: 81001; 81003

== ENCOUNTER 2025-02-12 10:01 | Outpatient (REF) | payer MEDICAID, SELFPAY ==
[2025-02-12 13:09] LABS: Appearance Urine Cloudy; Glucose Urine UA Negative (Negative); PH 5.0 (5.0-9.0); Specific Gravity - Urine 1.025 (1.005-1.025); UMIC TRIGGER UA YES
[2025-02-12 13:29] LABS: Microalbum/Creatinine Ratio Ur 3.8 ug/mg cr (<30); Total Protein Urine Random < 7 mg/dL (<12)
== END 2025-02-12 10:02 | disposition home or self-care (01) ==
LOC: HO.10HDL 10:01
PROVIDERS: PCP Dentist General Practice; Visit Provider Internal Medicine Critical Care Medicine
DX: R31.29 Other microscopic hematuria (principal); R10.10 Upper abdominal pain, unspecified
CPT/HCPCS: 81001; 81003; 82043; 82570; 84156

== ENCOUNTER 2025-02-12 10:01 | Outpatient (AMB) | payer MEDICAID, SELFPAY ==
--- NOTE | 2025-02-12 10:23 | HO.NEPHOV_ITS ---
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 history of kidney stones 15years ago, voided it without any procedure. 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 [facility] Surgical History History of esophagogastroduodenoscopy (EGD) Review of Systems Const Details: Const : no body aches, no chills, no excessive sweating and no fatigue Eyes: no blurry vision and no change in vision ENT: no bleeding gums and no change in voice, no dizziness Card: no chest pain, no shortness of breath, no orthopnea, no PND Resp: no cough, no excessive phlegm production, no SOB GI: no abdominal pain and no nausea, no vomiting : no hematuria, no urinary frequency and no difficulty voiding Musc: no abnormal gait, no bone pain Neuro: no abnormal movements, no weakness, no dizziness, no abnormal gait and no behavioral changes Psych: no behavioral changes and no change in appetite Endo: no change in body appearance, no cold intolerance, no excessive sweating and no fatigue Physical Exam Vital Signs: Last Vital Signs Pulse 77 02/12/25 10:24 BP 112/80 02/12/25 10:24 Pulse Ox 95 02/12/25 10:24 Oxygen Delivery Method Room Air 02/12/25 10:24 BMI result Body Mass Index 36.8 General: not in any acute distress, ill appearing Nutritional Appearance: well nourished and overweight Eyes: appearance normal, both eyes and all related structures Neck: No lymphadenopathy, no thyromegaly Resp: bilateral air entry equal, no added sounds present Cardio: Regular rate, regular rhythm; Heart sounds: S1 normal heart sound present and S2 normal heart sound present GI: soft, nontender, no guarding, no hepatosplenomegaly : bladder normal to inspection, bladder normal to palpation, no renal angle tenderness Skin: no rashes or lesions noted and elasticity normal Neuro: alert, oriented x 3, moves all extremities Results Reviewed Nephrology Results: Hgb, (12.0-16.0) 14.7 g/dl 10/23/24 WBC, (4.8-10.8) 6.2 X10*3/uL 10/23/24 Plt Count, (160-400) 213 X10*3/uL 10/23/24 Sodium, (135-145) 141 mmol/L 10/23/24 Potassium, (3.3-5.1) 4.0 mmol/L 10/23/24 Chloride, (96-108) 109 mmol/L H 10/23/24 Carbon Dioxide, (22-29) 24 mmol/L 10/23/24 BUN, (9-16) 14 mg/dL 10/23/24 Creatinine, (0.5-1.4) 0.73 mg/dL 10/23/24 Calcium, (8.4-10.2) 9.3 mg/dL 10/23/24 Urine Protein, (Neg-Trace) Negative mg/dL 01/19/25 Assessment & Plan Assessment & Plan (1) Microscopic hematuria: Code(s): R31.29 - Other microscopic hematuria Category: Medical (2) Upper abdominal pain: Code(s): R10.10 - Upper abdominal pain, unspecified Category: Medical Plan Microscopic hematuria: - patient had 2 urinalysis in October and January both of which showed trace blood with 3-5 RBCs; Negative protein, no WBC. - abdominal ultrasound in 12/12/2024 showed right kidney 11 cm, left kidney 12.5 cm but no stones - we will quantify proteinuria, if it is negative given his normal renal function he would possibly need a urological workup including cystoscopy to look for any evidence of malignany or stones. If he has proteinuria he will need to see us back. Will schedule for a followup in a year Orders: Orders UA and rflx microscopic Today R31.29 - Other microscopic hematuria Microalbumin, Random (w Creat) Today R31.29 - Other microscopic hematuria Protein Creatinine Ratio, Ur Today R31.29 - Other microscopic hematuria Coding Level of Care Code New Pt Level 4 (93001) Diagnoses Microscopic hematuria R31.29 Upper abdominal pain R10.10
[2025-02-12 10:24] VITALS: BP 112/80; PULSE 77; O2SAT 95; BMI 36.8
--- OUTSIDE RECORDS SUMMARY | 2025-02-12 11:11 | XMS_ITS | Clinical Summary ---
Author Organization [employer] Address [address] [place] [address] [address] [place] [address] Care Team Providers Care Electronics Installer Name Role Phone Unavailable Primary Care Provider [...]
== END 2025-02-12 10:56 | disposition home or self-care (01) ==
LOC: HO.HKA 10:01
PROVIDERS: PCP Dentist General Practice; Visit Provider Internal Medicine Critical Care Medicine
DX: R31.29 Other microscopic hematuria (principal); R10.10 Upper abdominal pain, unspecified
CPT/HCPCS: 99204